=== PATIENT | male | born 1960 | race Caucasian/White ===

== ENCOUNTER 2016-08-18 18:52 | Observation (INO) | payer BC ==
[2016-08-18] MEDS ORDERED: Sodium Chloride 0.9% 5 ML Syringe FLUSH PRN (18:55)
--- NOTE | 2016-08-18 19:33 | EDM.PDOC ---
ED HISTORY OF PRESENT ILLNESS - General Chief Complaint: Chest Pain Stated Complaint: chest pain Time Seen by Provider: 08/18/16 18:55 Source of Information: Reports: Patient History Limitations: Reports: No limitations - History of Present Illness INITIAL COMMENTS - FREE TEXT/NARRATIVE: PT STATES WHILE AT REST HE DEVELOPED LEFT UPPER CHEST PAIN, SHARP AND STABBING, LASTED FEW SECONDS, RESOLVED, CAME BACK FEW TIMES AND SPONTANEOUSLY RESOLVED. PT UNDERWENT 3 VESSEL CABG AT [facility] BY DR CRUZ 3 WEEKS AGO. DENIES FEVER, COUGH, SOB, ANY TRAUMA, PAIN RADIATION, N/V, OR DIAPHORESIS. Symptom Onset Date: 08/18/16 Symptom Onset Time: 14:30 Timing/Duration: Reports: Hour(s): Severity: mild Location, General: Reports: chest Quality: Reports: Sharp, Stabbing Improves with: Reports: None Worsens with: Reports: None Associated Symptoms (General): Reports: chest pain - Related Data Allergies/ADRs: Allergies Allergy/AdvReac Type Severity Reaction Status Date / Time No Known Drug Allergies Allergy Other Verified 08/18/16 18:59 Home Meds: Home Meds Rosuvastatin Calcium [Crestor] 20 mg PO QPM 07/20/14 [History] Aspirin [Ecotrin] 1 tab PO DAILY 08/18/16 [History] Lisinopril 1 tab PO DAILY 08/18/16 [History] Metoprolol Tartrate 1 tab PO BID 08/18/16 [History] Past Medical History Cardiovascular History: Reports: Bypass, High cholesterol, Hypertension Gastrointestinal History: Reports: Diverticulosis Neurological History: Reports: None - Infectious Disease History Infectious Disease History: Reports: Chicken pox, Mumps - Past Surgical History Head Surgeries/Procedures: Reports: None Cardiovascular Surgical History: Reports: Coronary artery bypass GI Surgical History: Reports: Cholecystectomy, Colonoscopy, Polypectomy Neurological Surgical History: Reports: Lumbar spine Dermatological Surgical History: Reports: None Social & Family History - Tobacco Use Smoking Status *Q: Never Smoker - Caffeine Use Caffeine Use: Reports: Coffee - Recreational Drug Use Recreational Drug Use: No - Living Situation & Occupation Living situation: Reports: Occupation: employed ED ROS GENERAL - Review of Systems Review Of Systems: ROS reveals no pertinent complaints other than HPI. Constitutional: Reports: no symptoms HEENT: Reports: No symptoms Respiratory: Reports: No Symptoms Cardiovascular: Reports: Chest pain Endocrine: Reports: no symptoms GI/Abdominal: Reports: No symptoms : Reports: no symptoms Musculoskeletal: Reports: no symptoms Skin: Reports: no symptoms Neurological: Reports: No Symptoms Psychiatric: Reports: No symptoms Hematologic/Lymphatic: Reports: no symptoms Immunologic: Reports: no symptoms ED EXAM, GENERAL - Physical Exam Exam: See Below Exam Limited By: No limitations General Appearance: alert, WD/WN, no apparent distress Eye Exam: bilateral eye: normal inspection Nose: normal inspection, normal mucosa, no blood Throat/Mouth: Normal inspection, Normal oropharynx, No airway compromise Head: atraumatic, normocephalic Neck: normal inspection, supple, non-tender, full range of motion Respiratory/Chest: no respiratory distress, lungs clear, normal breath sounds, no accessory muscle use Cardiovascular: regular rate, rhythm, no murmur GI/Abdominal: normal bowel sounds, soft, non tender, no organomegaly, no distention, no abnormal bruit, no mass Back Exam: normal inspection. No: CVA tenderness (L), CVA tenderness (R) Extremities: normal inspection, non-tender, no pedal edema, normal capillary refill Neurological: alert, oriented, CN II-XII intact, normal cognition, no motor/ sensory deficits Psychiatric: normal affect, normal mood Skin Exam: Warm, Dry, Intact, Normal color, No rash Lymphatic: no adenopathy EKG INTERPRETATION EKG Date: 08/18/16 Time: 18:55 Rhythm: NSR Rate (beats/min): 70 P-wave: present ST-T: other (NONSPECIFIC T WAVE) Comparison: NA - no prior EKG Course - Vital Signs Last Recorded V/S: Last Vital Signs Temp 97.1 F 08/18/16 18:54 Pulse 75 08/18/16 18:54 Resp 20 08/18/16 18:54 BP 154/99 H 08/18/16 18:54 Pulse Ox 98 08/18/16 18:54 - Orders/Labs/Meds Orders: Active Orders 24 hr Category Date Time Status Cardiac Monitoring [RC] . DIRECTED Care 08/18/16 18:55 Active EKG Documentation Completion [RC] ASDIRECTED Care 08/18/16 18:55 Active Peripheral IV Care [RC] . DIRECTED Care 08/18/16 18:55 Active Chest 1V Frontal [CR] Stat Exams 08/18/16 18:55 Taken CKMB [CHEM] Stat Lab 08/18/16 18:55 Received COMPREHENSIVE METABOLIC PN,CMP [CHEM] Stat Lab 08/18/16 18:55 Received TROPONIN I [CHEM] Stat Lab 08/18/16 18:55 Received Sodium Chloride 0.9% [Syrex Flush] Med 08/18/16 18:55 Active 5 ml FLUSH Q8HR PRN Peripheral IV Insertion Adult [OM.PC] Stat Oth 08/18/16 18:55 Ordered Saline Lock Insert [OM.PC] Stat Oth 08/18/16 18:55 Ordered EKG 12 Lead [EK] Stat Ther 08/18/16 18:55 Ordered Medication Orders Sodium Chloride (Syrex Flush) 5 ml FLUSH Q8HR PRN PRN Reason: Keep Vein Open Labs: Laboratory Tests 08/18/16 Range/Units 18:55 WBC 6.8 (5.0-10.0) 10^3/uL RBC 4.64 (4.50-6.00) 10^6/uL Hgb 13.6 (13.0-17.0) g/dL Hct 40.0 (40.0-52.0) % MCV 86.2 (82.0-92.0) fL MCH 29.4 (27.0-31.0) pg MCHC 34.1 (32.0-36.0) g/dL RDW 12.3 (11.5-14.5) % Plt Count 380 H (150-300) 10^3/uL MPV 7.2 L (7.4-10.4) fL Neut % (Auto) 63.7 (50.0-70.0) % Lymph % (Auto) 24.3 (20.0-40.0) % [place] % (Auto) 8.0 (2.0-8.0) % Eos % (Auto) 2.9 (1.0-3.0) % Baso % (Auto) 1.1 H (0.0-1.0) % Neut # (Auto) 4.3 (2.5-7.0) 10^3/uL Lymph # (Auto) 1.7 (1.0-4.0) 10^3/uL [place] # (Auto) 0.5 (0.1-0.8) 10^3/uL Eos # (Auto) 0.2 (0.1-0.3) 10^3/uL Baso # (Auto) 0.1 (0.0-0.1) 10^3/uL Meds: Medications Generic Name Dose Route Start Last Admin Trade Name Freq PRN Reason Stop Dose Admin Sodium Chloride 5 ml 08/18/16 18:55 Syrex Flush FLUSH Q8HR PRN Keep Vein Open - Radiology Interpretation Free Text/Narrative:: CXR SHOWS CARDIOMEGALY, OTHERWISE NO ACUTE PROCESS - Re-Assessments/Exams Free Text/Narrative Re-Assessment/Exam: 08/18/16 20:01 PT AFEBRILE, NONTOXIC APPEARING, PAIN RESOLVED, VSS. DISCUSSED CASE WITH DR LOVELL. REQUESTS PT BE ADMITTED TO OBSERVATION AND WILL BE IN SHORTLY TO EVALUATE. Departure - Departure Time of Disposition: 20:07 Disposition: Refer to Observation Condition: good Clinical Impression: Atypical chest pain Forms: ED Department Discharge - My Orders Last 24 Hours: My Active Orders 08/18/16 18:55 Cardiac Monitoring [RC] . DIRECTED EKG Documentation Completion [RC] ASDIRECTED Peripheral IV Care [RC] . DIRECTED Chest 1V Frontal [CR] Stat CKMB [CHEM] Stat COMPREHENSIVE METABOLIC PN,CMP [CHEM] Stat TROPONIN I [CHEM] Stat Sodium Chloride 0.9% [Syrex Flush] 5 ml FLUSH Q8HR PRN Peripheral IV Insertion Adult [OM.PC] Stat Saline Lock Insert [OM.PC] Stat EKG 12 Lead [EK] Stat - Assessment/Plan Last 24 Hours: My Active Orders 08/18/16 18:55 Cardiac Monitoring [RC] . DIRECTED EKG Documentation Completion [RC] ASDIRECTED Peripheral IV Care [RC] . DIRECTED Chest 1V Frontal [CR] Stat CKMB [CHEM] Stat COMPREHENSIVE METABOLIC PN,CMP [CHEM] Stat TROPONIN I [CHEM] Stat Sodium Chloride 0.9% [Syrex Flush] 5 ml FLUSH Q8HR PRN Peripheral IV Insertion Adult [OM.PC] Stat Saline Lock Insert [OM.PC] Stat EKG 12 Lead [EK] Stat Assessment:: CHEST PAIN Plan: ADMIT TO OBS FOR DR LOVELL
[2016-08-18 19:44] LABS: CHLORIDE,CL 103 mmol/L (98-115); SODIUM,NA 143 mmol/L (136-145)
[2016-08-18] MEDS ORDERED: LORazepam 0.5 MG Tab PO ONE (20:06)
[2016-08-18] MEDS ORDERED: Rosuvastatin 10 MG Tab PO SCH (21:00)
[2016-08-18] MEDS: Aspirin 325 MG Tab.EC PO SCH (21:38)
[2016-08-18] MEDS: Metoprolol Tartrate 25 MG Tab PO SCH (21:38)
[2016-08-19] MEDS: Aspirin 325 MG Tab.EC PO SCH (08:22)
[2016-08-19] MEDS: Metoprolol Tartrate 25 MG Tab PO SCH (08:22)
[2016-08-19] MEDS ORDERED: Lisinopril 10 MG Tab PO SCH (09:00)
[2016-08-19 10:08] VITALS: BP 115/72
--- NOTE | 2016-08-19 10:48 | HP ---
PATIENT PROFILE: The patient is a 55-year-old gentleman from [place], [place]. The patient presented to the emergency room with complaints of the anterior sharp chest pain, which he described was like pinprick type. The patient had been fairly active for the last three or four days. Significant history includes the fact that he had coronary artery bypass surgery three weeks ago at [facility] with Dr. Smith. The patient denies having any diaphoresis or any radiation of pain to the neck or the arms. No shortness of breath. It lasted for a few minutes. Pain was stabbing in nature. PAST MEDICAL HISTORY: Includes diverticulosis. SOCIAL HISTORY: Denies smoking. Caffeine, he drinks coffee three times a day. Recreational drugs negative. Living situation, the patient is and is accompanied by his . PAST SURGICAL HISTORY: Please see that he had a coronary artery bypass surgery. GI history, he has had cholecystectomy, colonoscopy, and polypectomy. Neurologic surgery, question lumbar spine. Dermatological, no complaints and no surgical procedures. Infectious disease, the patient had chickenpox and mumps. REVIEW OF SYSTEMS: HEAD AND NECK: No complaints. ENT: No complaints. HEART: See present history. LUNGS: See present history. ABDOMEN: No complaints. MUSCULOSKELETAL: No complaints. NEUROLOGIC: No complaints. UROLOGIC: No complaints. PSYCHIATRIC: The patient states that he does get some anxiety now and then. IMMUNOLOGIC: No complaints. HEMATOLOGIC: No complaints. PHYSICAL EXAMINATION: GENERAL: Reveals very pleasant gentleman of stated age, in no immediate distress. VITAL SIGNS: Blood pressure currently is 116/70, pulse is 53, respirations 22. ENT: Negative. EYES: Normal. NECK: Supple. Full range of motion. No midline swellings. HEART: Regular rhythm. No thrills and no murmurs. LUNGS: Clear to percussion and auscultation. CHEST: There is a scar of recent thoracotomy. ABDOMEN: Negative. No tenderness. Liver and spleen not palpable. No mass palpable. No abdominal pulsations felt. EXTREMITIES: Normal. NEUROLOGIC: Intact. IMPRESSION: 1. Coronary artery disease. Chest pain probably chest wall pain, unable to rule out angina pectoris. 2. Status post coronary artery bypass surgery three weeks ago at [facility]. 3. Chest wall pain. 4. History of anxiety. 5. Hypertension. PLAN: Admit to the hospital for further treatment. Serial enzymes will be withdrawn. The patient will be observed carefully. He will be given Ativan for controlling anxiety. Blood pressure readings will be monitored carefully. We will continue on his old medications, which include metoprolol 25 mg b.i.d., lisinopril 10 mg daily, also continue Crestor 20 mg daily four hypercholesteremia, and aspirin 325 mg daily. /[id number]/MODL MTDD
--- NOTE | 2016-08-22 09:03 | PN ---
08/19/2016PATIENT NAME: DUANE LOVE SUBJECTIVE: This is a 55-year-old gentleman who was admitted last night because of chest pain and suspected angina pectoris. The patient recently has had a coronary artery bypass surgery approximately three weeks ago at [place]. He had some sharp shooting pains in the anterior portion of the chest and had complained to have high blood pressure. Because of that, he was admitted to the hospital. OBJECTIVE: GENERAL: Today, he is sitting up in the bed and does not have any chest pain. He feels well. VITAL SIGNS: Blood pressure is 116/71, pulse is 53. Intake and output are satisfactory. IMAGING: EKG did not show any evidence for myocardial infarction. He does have some T-wave inversion over the upper lateral leads at V4, V5, and V6. No acute changes are noted. LABORATORY DATA: His hemoglobin is 13.6, white count is 6.8. Troponins were negative. Electrolytes were all normal. PLAN: Plan will be to send him home today with the following changes, 1. He is to continue lisinopril 10 mg daily. EKG is good without ischemic changes. 2. Add HCTZ 12.5 mg daily. 3. Continue metoprolol 25 mg b.i.d. 4. Continue rosuvastatin 20 mg daily. 5. Aspirin 325 mg daily. 6. Ativan 0.25 to 0.5 mg up to three times a day as necessary for anxiety. Follow up next week. /[id number]/MODL MTDD
--- NOTE | 2016-08-22 09:06 | DISCH ---
FINAL DIAGNOSIS: Chest wall pain. HISTORY OF PRESENT ILLNESS: This is a 55-year-old gentleman. He was admitted to the hospital because of sharp, shooting, stabbing chest pain. He had coronary artery bypass surgery three weeks ago at [facility] [place]. He has history of hypertension and hypercholesteremia. After being admitted to the hospital, he was monitored closely. EKGs were taken, which showed no acute changes. Cardiac enzymes are negative. His blood work looked normal. Hemoglobin is 13.6, white count is 6.8. Normal electrolytes and CMP. Troponins were negative. EKG did not show any signs of progression. On the morning of , he was doing well with no chest pain. Vital signs are stable. He has been discharged today with the following changes to his therapeutic regimen namely, 1. Add HCTZ 12.5 mg daily. 2. Continue lisinopril 10 mg daily. 3. Continue rosuvastatin 20 mg daily. 4. Continue metoprolol 25 mg b.i.d. 5. Aspirin 325 mg daily. 6. Ativan 0.25 to 0.5 mgm up to 3 times a day The patient is advised no severe physical activity and to return to clinic next week for followup. The patient is advised to have his blood pressure taken at least once or twice daily, and if the diastolic is consistently more than 90, he is advised to increase the lisinopril to 20 mg daily. Final Diagnosis: 1. Chest wall Pain, Recent CABG for CAD. 2. Hypertension. 3. Anxiety. 4. Hypercholesterolemia. Condition stable: follow up next week after changes to his medications.. /[id number]/MODL MTDD
== END 2016-08-19 10:30 | disposition home or self-care (01) ==
LOC: KA.ED 18:52 → KA.MS 20:57
PROVIDERS: ADMIT Family Medicine; ATTEND Family Medicine
DX: I25.810 Atherosclerosis of coronary artery bypass graft(s) without angina pectoris (principal); R07.89 Other chest pain; I10 Essential (primary) hypertension; F41.9 Anxiety disorder, unspecified; E78.00 Pure hypercholesterolemia, unspecified; Z79.82 Long term (current) use of aspirin; Z90.49 Acquired absence of other specified parts of digestive tract; Z79.899 Other long term (current) drug therapy; Z98.890 Other specified postprocedural states
CPT/HCPCS: 36415; 71010; 80053; 82553; 84484; 85025; 99285; A9270; 93005; G0378

== ENCOUNTER 2017-01-26 08:00 | Emergency (ER) | payer BC, OTHER ==
[2017-01-26] MEDS ORDERED: Diphtheria,Pertussis(Acell),Tetanus Vaccine 0.5 ML SDV IM ONE (08:14)
--- NOTE | 2017-01-26 08:15 | EDM.PDOC ---
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 It bled quite a bit; no numbness. He doesn't know when his last tetanus was. He had a CABG 6 months ago but only takes aspirin for blood thinner. No diabetes. - Related Data Allergies Allergy/AdvReac Type Severity Reaction Status Date / Time morphine Allergy Vomiting Verified 08/18/16 21:06 Home Meds: Home Meds Rosuvastatin Calcium [Crestor] 20 mg PO QPM 07/20/14 [History] Aspirin [Ecotrin] 325 mg PO DAILY 08/18/16 [History] Lisinopril 10 mg PO DAILY 08/18/16 [History] Metoprolol Tartrate 25 tab PO BID 08/18/16 [History] Hydrochlorothiazide 12.5 mg PO DAILY 08/19/16 [History] LORazepam [Ativan] 0.5 - 1 tab PO TID PRN 08/19/16 [History] Nitroglycerin [Nitrostat] 1 tab SL ASDIRECTED 08/19/16 [History] Past Medical History Cardiovascular History: Reports: Bypass, High Cholesterol, Hypertension Gastrointestinal History: Reports: Diverticulosis Musculoskeletal History: Reports: Neck Pain, Chronic Neurological History: Reports: Headaches, Chronic Dermatologic History: Reports: Other (See Below) Other Dermatologic History: dry skin - Infectious Disease History Infectious Disease History: Reports: Chicken Pox, Mumps - Past Surgical History Cardiovascular Surgical History: Reports: Coronary Artery Bypass, Other (See Below) Neurological Surgical History: Reports: Lumbar Spine Social & Family History - Family History Cardiac: Reports: Bypass, CAD - Tobacco Use Smoking Status *Q: Former Smoker Years of Tobacco use: 20 - Caffeine Use Caffeine Use: Reports: Soda - Recreational Drug Use Recreational Drug Use: No - Living Situation & Occupation Living situation: Reports: Occupation: Employed Review of Systems - Review of Systems Review Of Systems: See Below Constitutional: Denies: Chills, Diaphoresis, Fever, Weakness Eyes: Reports: No Symptoms Ears: Denies: Dizziness Nose: Denies: Epistaxis Mouth/Throat: Reports: No Symptoms Respiratory: Denies: Shortness of Breath, Cough Cardiovascular: Denies: Chest Pain, Lightheadedness, Syncope GI/Abdominal: Denies: Abdominal Pain, Vomiting Genitourinary: Reports: No Symptoms Musculoskeletal: Denies: Arm Pain Skin: Denies: Cyanosis, Jaundice, Mottled, Pallor, Diaphoresis Neurological: Denies: Confusion, Dizziness, Headache ED EXAM, GENERAL - Physical Exam Exam: See Below Exam Limited By: No Limitations General Appearance: Alert, WD/WN, No Apparent Distress Eye Exam: Bilateral Eye: EOMI, Normal Inspection, PERRL Ears: Normal External Exam, Hearing Grossly Normal Nose: Normal Inspection, No Blood Throat/Mouth: Normal Inspection, Normal Lips, Normal Voice, No Airway Compromise Head: Atraumatic, Normocephalic Neck: Full Range of Motion Respiratory/Chest: No Respiratory Distress, Lungs Clear, Normal Breath Sounds Cardiovascular: Normal Peripheral Pulses, Regular Rate, Rhythm Peripheral Pulses: 2+: Radial (L), Radial (R) Extremities: Normal Range of Motion, Normal Capillary Refill, Other (Half-bee shaped laceration of left distal phalanx of thumb 50% circumferentially involving distal nail and bed slightly. CMS is intact and is too distal to involve tendon.) Neurological: Alert, Oriented, Normal Cognition, No Motor/Sensory Deficits ED TRAUMA EXTREMITY PROCEDURES - Laceration/Wound Repair Left Lateral Distal Lac/Wound Length In cm: 3.0 Appearance: Subcutaneous (flap that is quite deep but not quite to distal bone tuft.), Clean Distal NVT: Neuro & Vascular Intact, No Tendon Injury Anesthetic Type: Digital Local Anesthesia - Lidocaine (Xylocaine): 1% Plain Local Anesthetic Volume: 3cc Skin Prep: Providone-Iodine (Betadine), Saline Saline Irrigation (cc's): 250 Exploration/Debridement/Repair: Wound Explored, In a Bloodless Field, Explored to Base Closed With: Sutures Suture Size: 4-0 # of Sutures: 7 Suture Type: Nylon, Interrupted, Simple Sterile Dressing Applied: Provider (Sterile dressing with tube gauze over top) Tetanus Status Addressed: Yes Complications: No Course - Orders/Labs/Meds Orders: Active Orders 24 hr Category Date Time Status Vaccines to be Administered [RC] PER UNIT ROUTINE Care 01/26/17 08:14 Active Meds: Medications Discontinued Medications Generic Name Dose Route Start Last Admin Trade Name Freq PRN Reason Stop Dose Admin Diphtheria/Tetanus/Acell Pertussis 0.5 ml 01/26/17 08:14 Adacel IM 01/26/17 08:15 .ONCE ONE - Re-Assessments/Exams Free Text/Narrative Re-Assessment/Exam: 01/26/17 10:02 We found that he had a tetanus in 2014 so not given today. Discussed findings and treatment plan with patient. Recommended a sling to support and protect the injured hand and to limit swelling but he wants to go with out the sling. Patient discharged in stable condition. He wants to just use Tylenol or Ibuprofen if needed which is appropriate. Departure - Departure Time of Disposition: 09:53 Disposition: Home, Self-Care 01 Condition: Good Clinical Impression: Laceration of left thumb with damage to nail Qualifiers: Encounter type: initial encounter Foreign body presence: without foreign body Qualified Code(s): S61.112A - Laceration without foreign body of left thumb with damage to nail, initial encounter - Discharge Information Instructions: Laceration Care, Adult Additional Instructions: 1. Keep wound clean and dry. You should remove this dressing in 48 hours and re -bandage with sterile bandage. 2. Take antibiotic as directed. 3. If any sign of infection such as increasing redness, swelling or drainage occur follow up RE[facility] with your PCP for recheck. 4. No use of this at work until stitches are removed. 5. Follow up with your PCP in 10-12 days for suture removal. - My Orders Last 24 Hours: My Active Orders 01/26/17 08:14 Vaccines to be Administered [RC] PER UNIT ROUTINE - Assessment/Plan Last 24 Hours: My Active Orders 01/26/17 08:14 Vaccines to be Administered [RC] PER UNIT ROUTINE
[2017-01-26 12:01] VITALS: BP 131/69
== END 2017-01-26 10:10 | disposition home or self-care (01) ==
LOC: KA.ED 08:00
DX: S61.112A Laceration without foreign body of left thumb with damage to nail, initial encounter (principal); I10 Essential (primary) hypertension; E78.00 Pure hypercholesterolemia, unspecified; Z23 Encounter for immunization; Z87.891 Personal history of nicotine dependence; Z95.1 Presence of aortocoronary bypass graft; Z98.890 Other specified postprocedural states; Z79.82 Long term (current) use of aspirin; Z79.899 Other long term (current) drug therapy; Z88.5 Allergy status to narcotic agent; W45.8XXA Other foreign body or object entering through skin, initial encounter; Y93.89 Activity, other specified; Y99.0 Civilian activity done for income or pay
CPT/HCPCS: 12002; 90471; 99283